=== PATIENT | female | born 1985 | race Caucasian/White ===

== ENCOUNTER 2016-08-24 18:26 | Emergency (ER) | payer OTHER ==
[~2016-08-24] VITALS: Ht 165.1 cm; Wt 73.0 kg
[~2016-08-24 18:26] MED LIST: ESCI1TAB10 PO; LRT5 PO; TRAZ100T29 PO; TRAZ50TA35 PO
[2016-08-24 18:32] VITALS: TEMP 36.5; Ht 165.1 cm; Wt 73.0 kg
[2016-08-24] MEDS ORDERED: AMPH10TA2 PO (19:08)
[2016-08-24] MEDS ORDERED: LEVE500T13 PO (19:08)
[2016-08-24] MEDS ORDERED: CLON0.5T3 PO (19:08)
[2016-08-24] MEDS ORDERED: TOPI100T20 PO (19:08)
[2016-08-24] MEDS ORDERED: AMPH20TA2 PO (19:08)
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
[2016-08-24 19:31] LABS: BASO % 0.1 %; BASO ABS # 0.01 K/uL (0-0.2); COMPLETE YES; EOS % 2.5 %; HEMATOCRIT 45.1 % (37-47); IG% 0.1 %; LYMPH % 33.3 %; LYMPH ABS # 2.82 K/uL (1.2-3.4); MEAN CELL VOLUME 87.9 fL (80-100); MEAN CORPUSCULAR HEMOGLOBIN 29.6 pg (25-34); MEAN CORPUSCULAR HGB CONC 33.7 g/dl (32-36); MEAN PLATELET VOLUME 10.5 fL (7.4-10.4); MONO % 6.1 %; NEUT % 57.9 %; PLATELET COUNT 165 K/uL (130-400); RED BLOOD COUNT 5.13 M/uL (4.2-5.4); WHITE BLOOD COUNT 8.46 K/uL (4.8-10.8)
[2016-08-24 19:52] LABS: ALT/SGPT 26 U/L (12-78); AST/SGOT 7 U/L (15-37); BLOOD UREA NITROGEN 6 mg/dl (7-18); BUN/CREATININE RATIO 7.9 (10-20); CALCIUM 8.7 mg/dl (8.5-10.1); CARBON DIOXIDE 23 mmol/L (21-32); CHLORIDE 110 mmol/L (98-107); CREATININE 0.78 mg/dl (0.60-1.20); GLUCOSE 92 mg/dl (70-99); POTASSIUM 3.9 mmol/L (3.5-5.1); SODIUM 141 mmol/L (136-145)
[2016-08-24 19:55] LABS: ALKALINE PHOSPHATASE 54 U/L (45-117)
[2016-08-24 20:06] LABS: URINE APPEARANCE CLOUDY (CLEAR); URINE BILIRUBIN NEG (NEG); URINE COLOR YELLOW; URINE EPITHELIAL CELL AUTO >30 /lpf (0-5); URINE NITRITE NEG (NEG); URINE SPECIFIC GRAVITY 1.006 (1.000-1.030); UROBILINOGEN NEG (NEG)
[2016-08-24 20:10] LABS: MANUAL MICROSCOPIC REQUIRED? NO; REVIEW REQ? NO
[2016-08-24 20:13] VITALS: BP 98/62; PULSE 88; O2SAT 98
== END 2016-08-24 20:44 | disposition home or self-care (01) ==
LOC: C.EDB 18:31 → C.EDC 20:44
DX: R11.10 Vomiting, unspecified (principal); R56.9 Unspecified convulsions; G89.29 Other chronic pain; M54.9 Dorsalgia, unspecified; Z79.899 Other long term (current) drug therapy